=== PATIENT | male | born 1955 | race Two or more races ===

== ENCOUNTER 2023-08-28 09:25 | Emergency (ER) | payer MEDICARE, OTHER ==
[~2023-08-28] VITALS: Ht 175.3 cm; Wt 91.5 kg
[2023-08-28 10:07] VITALS: BP 119/95; PULSE 66; RESP 18; TEMP 98.2; O2SAT 95
[2023-08-28] MEDS ORDERED: AZIT-185 PO (10:39)
== END 2023-08-28 10:48 | disposition home or self-care (01) ==
LOC: ER 09:25
DX: J20.9 Acute bronchitis, unspecified (principal); I10 Essential (primary) hypertension; E78.5 Hyperlipidemia, unspecified